=== PATIENT | male | born 1990 | race Caucasian/White ===

== ENCOUNTER 2018-09-07 14:55 | Inpatient (IN) | payer OTHER ==
[~2018-09-07] VITALS: Ht 185.4 cm; Wt 71.2 kg
[2018-09-07 14:56] VITALS: BP 150/80
[2018-09-07 15:24] LABS: BASO % 0.3 % (0.0-1.0); EOS # 0.2 10*3/uL (0.0-0.4); EOS % 1.7 % (1.0-4.0); HEMATOCRIT 49.2 % (42.0-52.0); HEMOGLOBIN 16.4 g/dl (14.0-18.0); LYMPH # 1.6 10*3/uL (1.3-4.4); LYMPH % 15.8 % (27.0-41.0); MEAN CELL VOLUME 90.8 fl (80.0-94.0); MEAN CORPUSCULAR HGB 30.3 pg (27.0-31.0); MEAN CORPUSCULAR HGB CONC 33.3 g/dl (33.0-37.0); MEAN PLATELET VOLUME 10.2 fl (9.6-12.3); MONO # 0.6 10*3/uL (0.1-1.0); MONO % 6.4 % (3.0-9.0); NEUT # 7.6 10*3/uL (2.3-7.9); NEUT % 75.5 % (47.0-73.0); PLATELET COUNT AUTOMATED 251 10*3/uL (130-400); RED BLOOD COUNT 5.42 10*6/uL (4.50-5.90); RED CELL DISTRI WIDTH 12.9 % (0-14.5); WHITE BLOOD COUNT 10.1 10*3/uL (4.8-10.8)
[2018-09-07 15:45] LABS: URINE AMPHETAMINES < 1000 (1000ng/ml); URINE BARBITURATES < 200 (200ng/ml); URINE BENZODIAZEPINES < 200 (200ng/ml); URINE CANNABINOIDS (THC) < 50 (50ng/ml); URINE COCAINE < 300 (300ng/ml); URINE METHADONE < 300 (300ng/ml); URINE OPIATES > 300 (300ng/ml); URINE PHENCYCLIDINE < 25 (25ng/ml)
[2018-09-07 15:53] LABS: ALBUMIN 3.9 gm/dl (3.1-4.5); ALKALINE PHOSPHATASE 76 U/L (45-117); BUN 17 mg/dl (7-24); CHLORIDE 100 mmol/L (98-107); CREATININE 0.99 mg/dL (0.70-1.30); POTASSIUM 3.7 mmol/L (3.5-5.1); SGOT/AST 29 IU/L (3-35); SGPT/ALT 85 U/L (12-78); SODIUM 140 mmol/L (136-145); TOTAL PROTEIN 7.2 gm/dL (6.4-8.2)
--- NOTE | 2018-09-07 16:59 | NUR ---
PATIENT MEETS [facility]. PATIENT WANTS OUTPATIENT TREATMENT FOR HIS AFTERCARE PLAN. [facility] STAFF WILL FOLLOW UP WITH PATIENT. LADY DARBY B.A. [employer] GR[employer]ER
--- NOTE | 2018-09-07 17:30 | NUR ---
28 year old MALE admitted to room # 419 for stabilization. 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 Compliant with admission procedure. See assessment forms for additional information about patient status.
[2018-09-07 17:43] VITALS: BP 131/69
[2018-09-07 20:00] VITALS: BP 133/69
--- NOTE | 2018-09-07 20:56 | NUR ---
ASSUMED CARE OF PATIENT. PATIENT IS RESTING IN BED WITH EASY AND REGULAR RESPERS ON ROOM AIR. ASSESSMENT IS COMPLETE WITH NO S/S OF DISTRESS NOTED. PATIENT DOES C/O HOT/COLD CHILLS, ANXIETY, AND BODY ACHES. BED IS LOW, LOCKED, AND CALL LIGHT IS WITHIN REACH. NICOTINE INHALER PROVIDED WITH EDUCATION ON HOW TO USE. SEE SHIFT ASSESSMENT.
--- NOTE | 2018-09-07 21:37 | NUR ---
PATIENT MEDICATED WITH PRN MOTRIN FOR BODY ACHES AND TRAZADONE FOR INSOMNIA/ANXIETY. PATIENT IS NOW REQUESTING SUBUTEX TAPER BUT WOULD LIKE IT TO BE PRN EXPLAINED TO PATIENT THAT SUBUTEX IS NOT A PRN MEDICATION, AND ALSO EDUCATED PATIENT ON THE [facility] PROGRAM/PROTOCALS. CALL LIGHT IS WITHIN REACH WILL MONITOR EFFECT.
--- NOTE | 2018-09-07 23:05 | NUR ---
PRN MOTRIN AND TRAZADONE SEEM EFFECTIVE, PATIENT IS SLEEPING WITH EASY AND REGULAR RESPERS ON ROOM AIR. PATIENT REFUSING SUBUTEX AT THIS TIME. CALL LIGHT IS WITHIN REACH.
[2018-09-08] VITALS: BP 121/51
--- NOTE | 2018-09-08 07:44 | NUR ---
Shift chart check completed.
[2018-09-08 08:00] VITALS: BP 100/53
--- NOTE | 2018-09-08 10:14 | NUR ---
PT RESTING QUIETLY IN BED, STATES PRN HELPING "SOME" AT THIS TIME. EDUCATED PATIENT ON SUBUTEX AND HE IS AGREEABLE TO TAKING NEXT SCHEDULED DOSE
[2018-09-08 11:54] VITALS: BP 116/56
[2018-09-08 13:21] LABS: BILIRUBIN NEGATIVE (NEGATIVE); BLOOD NEGATIVE (NEGATIVE); CLARITY TURBID (CLEAR); COLOR YELLOW (YELLOW); GLUCOSE NEGATIVE (NEGATIVE); KETONE NEGATIVE (NEGATIVE); LEUKO ESTERASE NEGATIVE (NEGATIVE); NITRITE NEGATIVE (NEGATIVE); PH 8.5 (5.0-9.0); SPECIFIC GRAVITY 1.015 (1.005-1.030); UROBILINOGEN 0.2 E.U./dl (0.2-1.0)
[2018-09-08 13:31] LABS: BACTERIA 4+; EPITHELIAL CELLS 0-2
--- NOTE | 2018-09-08 14:13 | NUR ---
PT HAD BELONGINGS PACKED UP AND WAS WALKING IN [place] LOOKING FOR ELEVATOR, ASKED PATIENT WHAT HE WAS DOING, HE STATED "JUST GOING OUTSIDE FOR SOME AIR" REEDUCATED PATIENT ON [facility] RULES, PT SIGNED AMA PAPERS
== END 2018-09-08 14:10 | disposition left against medical advice (07) | DRG 894 ==
LOC: ED 14:55 → 4E 16:00 → EDHOLD 16:00 → 4E 16:34
PROVIDERS: Internal Medicine; Physician Assistant; ADMIT Internal Medicine
DX: F11.23 Opioid dependence with withdrawal (principal); F41.9 Anxiety disorder, unspecified; Z53.21 Procedure and treatment not carried out due to patient leaving prior to being seen by health care provider; Z71.6 Tobacco abuse counseling; F17.210 Nicotine dependence, cigarettes, uncomplicated; F11.29 Opioid dependence with unspecified opioid-induced disorder